=== PATIENT | female | born 1965 | race Caucasian/White ===

== ENCOUNTER 2021-07-28 17:06 | Emergency (ER) | payer BC, SELFPAY ==
--- NOTE | ~2021-07-28 | XR_ITS ---
EXAMINATION: XR chest 2V CLINICAL INFORMATION: Reason for Exam left-sided chest pain, rule out pneumonia COMPARISON: Chest radiograph 04/16/2011 TECHNIQUE: 2 views of the chest XR/XR chest 2V FINDINGS/IMPRESSION: Clear lungs. No pneumothorax. No pleural effusion. Normal cardiomediastinal silhouette. Left rib fracture deformities new from 2010, favored to be remote in appearance however recommend correlation with history of trauma given symptoms of chest pain.
--- NOTE | 2021-07-28 17:12 | ECG_ITS ---
Test Reason : CP Blood Pressure : / mmHG Vent. Rate : 074 BPM Atrial Rate : 074 BPM P-R Int : 152 ms QRS Dur : 074 ms QT Int : 374 ms P-R-T Axes : 054 043 050 degrees QTc Int : 415 ms Normal sinus rhythm Normal ECG No previous ECGs available Referred By: Generic ED Physician Electronically Signed By:CHARLEE PATEL MD
[2021-07-28 17:19] VITALS: BP 159/83; PULSE 70; RESP 16; TEMP 37; O2SAT 98; BMI 28.3
[2021-07-28 19:51] LABS: MANUAL DIFF FLAG NO
[2021-07-28 19:52] LABS: Basophils Percent Auto 0.8 % (0-2); Eosinophils Absolute Auto 0.2 X10*3/uL (0.0-0.4); Eosinophils Percent Auto 3.2 % (0-4); Hematocrit 34.8 % (37.0-47.0); Hemoglobin 11.8 g/dl (12.0-16.0); Imm Gran Abs Auto 0.01 X10*3/uL (0.00-0.03); Imm Gran Pct Auto 0.2 % (0.0-0.4); Lymphocytes Absolute Auto 1.9 X10*3/uL (1.2-4.9); Lymphocytes Percent Auto 37.4 % (20-40); Mean Corpuscular HGB Conc 33.9 g/dl (31.0-35.0); Mean Corpuscular Volume 88.5 fL (80.0-98.0); Mean Platelet Volume 8.8 fL (9.4-12.3); Monocytes Absolute Auto 0.5 X10*3/uL (0.1-1.2); Monocytes Percent Auto 10.9 % (2-11); Neutrophils Absolute Auto 2.3 x10*3/uL (2.0-8.3); Neutrophils Percent Auto 47.5 % (45-73); Platelet Count 309 X10*3/uL (160-400); Red Blood Count 3.93 X10*6/uL (4.20-5.50); Red Cell Distribution Width 12.9 % (11.0-16.0); White Blood Count 4.9 X10*3/uL (4.8-10.8)
[2021-07-28 19:54] LABS: Appearance Urine HAZY; Color Urine YELLOW; Glucose Urine UA NEG (NEG); Leukocyte Esterase Urine 1+ (NEG); Nitrite Urine NEG (NEG); UACC Culture Trigger YES; Urine Blood NEG (NEG); Urine Ketones NEG (NEG); Urine Protein NEG (NEG-TRACE)
[2021-07-28 20:01] LABS: Amorphous Sediment Urine TRACE /LPF; Squamous Epithelial Cell Urine 1+ /LPF
[2021-07-28 20:03] LABS: RBC Urine 0-2 /HPF (0)
[2021-07-28 20:33] LABS: Blood Urea Nitrogen 15 mg/dL (9-16); Calcium 9.4 mg/dL (8.4-10.2); Creatinine Clr Calc Pharmacy 82.7; Estimated Glomerular Filt Rate > 60; Glucose Random 93 mg/dL (60-115)
--- NOTE | 2021-07-28 20:41 | ED_ITS ---
HPI - Chest Pain General Chief Complaint: Chest Pain Stated Complaint: chest pain Time Seen by Provider: 07/28/21 20:07 Source: patient Mode of arrival: ambulatory Limitations: no limitations History of Present Illness HPI narrative: 55-year-old female who presents emergency department for evaluation of chest pain. She states that she was at her desk at work, early this morning when she had a gradual onset chest pain. She points to her left chest and sternum when asked to localize the pain. She states the pain is somewhere between dull and sharp. The pain is been constant but waxes and wanes in intensity. The pain is 6/10 at its worst. She denied nausea, vomiting, diaphoresis. She did feel slightly lightheaded with the pain. The patient denied any radiation of the pain to her neck, jaw, arms. She states she has had similar pain in the last year. She states she has had at least 10 episodes in these episodes do not correlate with her exertion level. She is not gone on any long trips. She de nies any pain or swelling in her lower extremities. MD complaint: chest pain Pertinent past history: other ( Hypertension, former smoker) Onset (ago): day(s) ( 1) Timing of current episode: constant and other ( waxes and wanes in intensity) Prior episodes: Yes ( 10 episodes over the past year) Onset: during rest ( sitting at her desk) Pain location: substernal and left chest Pain radiation: none Severity: moderate Pain scale (0-10): 6 Quality: sharp and dull Relieving factors: nothing Exacerbating factors: nothing Associated symptoms: other ( mild lightheadedness) Treatment prior to arrival: none Related Data Allergies Allergy/AdvReac Type Severity Reaction Status Date / Time Penicillins [PENICILLINS] Allergy Unknown HIVES Unverified 07/28/21 17:19 Review of Systems Review of Systems: Yes all other systems are reviewed and are negative [facility] Past Medical History [facility] Narrative: Past medical history: Hypertension. Past surgical history: Bilateral tubal ligation. Partial thyroidectomy secondary to benign growth. Social history : The patient denies tobacco use but she is a former smoker. She smoked 1 pack per day for 25 years and she quit 8 years prior. She drinks alcohol on the [employer], mainly beer. She denies drug use. Social History Social History Advance Directives: No Physical Exam Vital Signs: Vital Signs: Last Vital Signs Temp 98.6 F 07/28/21 17:19 Pulse 54 07/28/21 21:43 Resp 16 07/28/21 21:43 BP 136/73 07/28/21 21:43 Pulse Ox 100 07/28/21 21:43 BMI result Body Mass Index 28.3 Const: General: cooperative and no acute distress Orientation/consciousness: oriented to person and oriented to place Limitations: no limitations HENMT: Head: Yes normal to inspection, Yes normocephalic and Yes atraumatic Ears: external ears normal General nose exam: Normal external nose present Face and sinus: Yes normal facial exam Mouth: Normal oral and palatal mucosa present Throat: Yes posterior oropharynx normal Eyes: General: appearance normal, both eyes and all related structures Pupils: Equal, round and reactive pupils present Neck: Neck: Yes normal visual inspection, Yes no lymphadenopathy, Yes trachea midline and Yes supple Chest: Chest palpation & inspection: normal inspection of the chest and normal palpation of entire chest wall Resp: Effort & Inspection: normal respiratory effort and able to speak in complete sentences Auscultation: clear to auscultation bilaterally Cardio: Rate: regular rate Rhythm: regular rhythm Heart sounds: S1 normal heart sound present, S2 normal heart sound present and no murmurs GI: Inspection: Yes normal to inspection Palpation (GI): Soft to palpation, nontender and no guarding Auscultation: normal bowel sounds : General: Yes no CVA tenderness Back/Spine/Pelvis: Back: no CVA tenderness Skin: General skin exam: no rashes or lesions noted Neuro: General: oriented to person and oriented to place Cranial nerves: Yes CN's II-XII intact bilaterally and Yes Equal, round and reactive pupils present Cognition (Neuro): normal cognition Motor exam (neuro): 5/5 motor strength present throughout Extrem: General: Yes normal to inspection Psych: Appearance: grossly normal Speech and movement: Normal speech and movement present Affect: normal affect Attitude: cooperative Thought process: Normal thought process present Thought content: Normal thought content present Course Course Course Narrative: 55-year-old female who presents emergency department for evaluation chest 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 The pain is been constant but waxes and wanes in intensity. The pain is located in the left side of her chest and 6/10 at its worst. Patient had associated lightheadedness. Her cardiac risk factors include hypertension and prior smoking history. Patient's initial vital signs did reveal an elevated blood pressure of 159/ 83 otherwise were unremarkable. Patient's physical examination was unremarkable. Laboratory evaluation was ordered including CBC, BMP, troponin. Twelve EKG chest x-ray will be obtained. Patient was ordered to get Toradol 15 mg IV. 2216: Laboratory evaluation: Mild anemia with an H&H of 11 and 34. Normal BMP. Troponin below detectable limits. Chest x-ray was normal. Twelve EKG was unremarkable. The patient did get complete resolution of her pain after the IV Toradol. The patient's presentation is most likely consistent with costochondritis. MDM - Chest Pain Lab Data Result diagrams: 07/28/21 19:42 07/28/21 20:07 Labs: Lab Results 07/28/21 07/28/21 07/28/21 Range/Units 19:42 19:42 19:46 WBC 4.9 (4.8-10.8) X10*3/uL RBC 3.93 L (4.20-5.50) X10*6/uL Hgb 11.8 L (12.0-16.0) g/dl Hct 34.8 L (37.0-47.0) % MCV 88.5 (80.0-98.0) fL MCH 30.0 (27.0-33.0) pg MCHC 33.9 (31.0-35.0) g/dl RDW 12.9 (11.0-16.0) % Plt Count 309 (160-400) X10*3/uL MPV 8.8 L (9.4-12.3) fL Immature Gran % (Auto) 0.2 (0.0-0.4) % Neut % (Auto) 47.5 (45-73) % Lymph % (Auto) 37.4 (20-40) % [place] % (Auto) 10.9 (2-11) % Eos % (Auto) 3.2 (0-4) % Baso % (Auto) 0.8 (0-2) % Lymph # (Auto) 1.9 (1.2-4.9) X10*3/uL [place] # (Auto) 0.5 (0.1-1.2) X10*3/uL Eos # (Auto) 0.2 (0.0-0.4) X10*3/uL Baso # (Auto) 0.0 (0.0-0.2) X10*3/uL Abs Immat Gran (auto) 0.01 (0.00-0.03) X10*3/uL Absolute Neuts (auto) 2.3 (2.0-8.3) x10*3/uL Absolute Nucleated RBC 0.000 (0.0-0.012) X10*3/uL Nucleated RBC % (auto) 0.0 (0.0-0.2) /100WBC Sodium (135-145) mmol/L Potassium (3.3-5.1) mmol/L Chloride (96-108) mmol/L Carbon Dioxide (22-29) mmol/L Anion Gap (12-20) BUN (9-16) mg/dL Creatinine (0.5-1.4) mg/dL Estim Creat Clear Calc Estimated GFR Random Glucose (60-115) mg/dL Calcium (8.4-10.2) mg/dL Troponin I High Sens < 3.5 (<3.5-17.0) ng/L Urine Color YELLOW Urine Appearance HAZY Urine pH 6.0 (5.0-8.0) Ur Specific Jach[place] 1.020 (1.005-1.025) Urine Protein NEG (NEG-TRACE) MG/DL Urine Glucose (UA) NEG (NEG) MG/DL Urine Ketones NEG (NEG) MG/DL Urine Blood NEG (NEG) Urine Nitrite NEG (NEG) Ur Leukocyte Esterase 1+ H (NEG) Urine RBC 0-2 (0) /HPF Urine WBC 1-4 (0-4) /HPF Ur Squamous Epith Cells 1+ /LPF Amorphous Sediment TRACE /LPF Urine Bacteria NONE /LPF 07/28/21 Range/Units 20:07 WBC (4.8-10.8) X10*3/uL RBC (4.20-5.50) X10*6/uL Hgb (12.0-16.0) g/dl Hct (37.0-47.0) % MCV (80.0-98.0) fL MCH (27.0-33.0) pg MCHC (31.0-35.0) g/dl RDW (11.0-16.0) % Plt Count (160-400) X10*3/uL MPV (9.4-12.3) fL Immature Gran % (Auto) (0.0-0.4) % Neut % (Auto) (45-73) % Lymph % (Auto) (20-40) % [place] % (Auto) (2-11) % Eos % (Auto) (0-4) % Baso % (Auto) (0-2) % Lymph # (Auto) (1.2-4.9) X10*3/uL [place] # (Auto) (0.1-1.2) X10*3/uL Eos # (Auto) (0.0-0.4) X10*3/uL Baso # (Auto) (0.0-0.2) X10*3/uL Abs Immat Gran (auto) (0.00-0.03) X10*3/uL Absolute Neuts (auto) (2.0-8.3) x10*3/uL Absolute Nucleated RBC (0.0-0.012) X10*3/uL Nucleated RBC % (auto) (0.0-0.2) /100WBC Sodium 139 (135-145) mmol/L Potassium 3.8 (3.3-5.1) mmol/L Chloride 104 (96-108) mmol/L Carbon Dioxide 28 (22-29) mmol/L Anion Gap 11 L (12-20) BUN 15 (9-16) mg/dL Creatinine 0.77 (0.5-1.4) mg/dL Estim Creat Clear Calc 82.7 Estimated GFR > 60 Random Glucose 93 (60-115) mg/dL Calcium 9.4 (8.4-10.2) mg/dL Troponin I High Sens (<3.5-17.0) ng/L Urine Color Urine Appearance Urine pH (5.0-8.0) Ur Specific Jachin (1.005-1.025) Urine Protein (NEG-TRACE) MG/DL Urine Glucose (UA) (NEG) MG/DL Urine Ketones (NEG) MG/DL Urine Blood (NEG) Urine Nitrite (NEG) Ur Leukocyte Esterase (NEG) Urine RBC (0) /HPF Urine WBC (0-4) /HPF Ur Squamous Epith Cells /LPF Amorphous Sediment /LPF Urine Bacteria /LPF ECG Data ECG #1: Attestation: I personally reviewed and interpreted this ECG as follows: Interpretation: 17 12: Normal sinus rhythm with a rate of 74, normal ID interval, QRS duration QTC interval, no ST segment elevation, no ST segment depression, inverted T-wave in V1, no PACs, no PVCs, this is a normal EKG. Discharge Plan Discharge Clinical Impression: Atypical chest pain Patient Disposition: Home, Self-Care Instructions: Costochondritis (ED) Additional Instructions: Your chest x-ray was normal. Your blood work was normal. Your troponin was below detectable limits, this is a marker of heart damage and is reassuring that you have no troponin in your blood. Your presentation and findings are consistent with inflammation of the joints of your chest (costochondritis). Take ibuprofen 200 mg pills, 3 pills every 6 hours as needed for pain. Take Tylenol (acetaminophen) 500 mg pills, 2 pills every 4 to 6 hours as needed for pain. Follow-up with your doctor in 2 days. Please return to the emergency department if your symptoms get worse or if you develop any symptoms that are concerning to you.
[2021-07-28 20:48] LABS: Anion Gap 11 (12-20); Carbon Dioxide 28 mmol/L (22-29); Chloride 104 mmol/L (96-108); Potassium 3.8 mmol/L (3.3-5.1); Sodium 139 mmol/L (135-145)
[2021-07-28] MEDS: Ketorolac Tromethamine 15 MG/ML VIAL IVPUSH (21:00)
[2021-07-28 21:15] LABS: Troponin-I High Sensitivity < 3.5 ng/L (<3.5-17.0)
--- NOTE | 2021-07-28 21:42 | PC.NURSE ---
Assumed care of pt Pt c/o midsternal CP radiating to back starting aroundd 0900 today. Per pt, intermittent pain and currently has no pain. Per pt, sharp pain, non-radiating Denies any SOB, n/v Hx of HTN Pt on cardiac monitors Will continue to monitor
[2021-07-28 21:43] VITALS: BP 136/73; PULSE 54; RESP 16; O2SAT 100
== END 2021-07-28 22:43 | disposition home or self-care (01) ==
PROVIDERS: Emergency Provider Emergency Medicine Emergency Medical Services
DX: R07.89 Other chest pain (principal); I10 Essential (primary) hypertension; Z87.891 Personal history of nicotine dependence
CPT/HCPCS: 36415; 71046; 80048; 81001; 84484; 85025; 87086; 93005; 96374; 99284; J1885